=== PATIENT | female | born 1940 | race Caucasian/White ===

== ENCOUNTER 2017-10-17 16:15 | Emergency (ER) | payer MEDICARE, OTHER ==
[2017-10-17] MEDS ORDERED: ONDANSETRON 4 MG/2 ML VIAL IVP STA (16:41)
[2017-10-17] MEDS ORDERED: SODIUM CHLORIDE 0.9% 1,000 ML IV STA (16:41)
--- NOTE | 2017-10-17 16:42 | ED ---
General Adult HPI - General Chief complaint: Nausea/Vomiting/Diarrhea Stated complaint: NVD Time Seen by Provider: 10/17/17 16:34 Source: patient, RN notes reviewed Mode of arrival: wheelchair Limitations: no limitations - History of Present Illness Initial comments: Patient 77-year-old female who presents emergency room today with a chief complaint of increased nausea vomiting that started early this morning. She states she's had 10 episodes of nausea and vomiting. No signs of blood. Patient does admit that she says cough congestion over the last 2 days as well. Patient denies any other complaints. Patient denies any recent fever, chills , shortness of breath, chest pain, back pain, abdominal pain, numbness or tingling, dysuria or hematuria, constipation, headaches or visual changes, or any other complaints. - Related Data Home Medications Medication Instructions Recorded Confirmed Acetaminophen Tab [Tylenol Tab] 650 mg PO Q6HR PRN 10/17/17 10/17/17 Alendronate Sodium [Fosamax] 70 mg PO Q7D 10/17/17 10/17/17 Aspirin [Adult Low Dose Aspirin EC] 81 mg PO DAILY 10/17/17 10/17/17 Biotin 5 mg PO DAILY 10/17/17 10/17/17 Cholecalciferol [Vitamin D3] 1,000 unit PO DAILY 10/17/17 10/17/17 FLUoxetine HCL [PROzac] 10 mg PO DAILY 10/17/17 10/17/17 Fexofenadine HCl 180 mg PO DAILY 10/17/17 10/17/17 Fluticasone Nasal [place] [Flonase 2 spr EA NOSTRIL DAILY 10/17/17 10/17/17 Nasal [place]] Hydroxychloroquine Sulfate 200 mg PO DAILY 10/17/17 10/17/17 [Plaquenil] Ibuprofen [Motrin] 400 mg PO Q8HR PRN 10/17/17 10/17/17 Levothyroxine Sodium [Synthroid] 88 mcg PO DAILY 10/17/17 10/17/17 [place]-3 Fatty Acids/Fish Oil [Fish 1 cap PO DAILY 10/17/17 10/17/17 Oil 1,000 mg Softgel] Phenylephrine HCl [Sudafed PE] 10 mg PO BID 10/17/17 10/17/17 Pravastatin Sodium [Pravachol] 10 mg PO HS 10/17/17 10/17/17 Pyridoxine HCl (Vitamin B6) 100 mg PO DAILY 10/17/17 10/17/17 [Vitamin B-6] predniSONE 2 mg PO DAILY 10/17/17 10/17/17 traZODone HCL 50 - 100 mg PO HS 10/17/17 10/17/17 Previous Rx's Medication Instructions Recorded Ondansetron Odt [Zofran ODT] 4 mg PO Q8HR PRN #20 tab 10/17/17 Allergies Allergy/AdvReac Type Severity Reaction Status Date / Time benzalkonium chloride Allergy Unknown Verified 10/17/17 18:13 buprenorphine Allergy Rash/Hives Verified 10/17/17 18:13 codeine Allergy Rash/Hives Verified 10/17/17 18:13 hydrocodone Allergy Unknown Verified 10/17/17 18:13 hydromorphone Allergy Unknown Verified 10/17/17 18:13 Latex, Natural Rubber Allergy Rash/Hives Verified 10/17/17 18:13 morphine Allergy Rash/Hives Verified 10/17/17 18:13 oxycodone Allergy Unknown Verified 10/17/17 18:13 penicillin V Allergy Rash/Hives Verified 10/17/17 18:13 Sulfa (Sulfonamide Allergy Unknown Verified 10/17/17 18:13 Antibiotics) tetanus and diphtheria Allergy Unknown Verified 10/17/17 18:13 toxoids tramadol Allergy Rash/Hives Verified 10/17/17 18:13 Review of Systems ROS Statement: Those systems with pertinent positive or pertinent negative responses have been documented in the HPI. ROS Other: All systems not noted in ROS Statement are negative. Past Medical History Additional Past Medical History / Comment(s): PMR, History of Any Multi-Drug Resistant Organisms: None Reported Past Surgical History: Back Surgery, Orthopedic Surgery Past Psychological History: No Psychological Hx Reported Smoking Status: Never smoker Past Alcohol Use History: None Reported Past Drug Use History: None Reported General Exam - General Exam Comments Initial Comments: General: The patient is awake and alert, in no distress, and does not appear acutely ill. Eye: Pupils are equal, round and reactive to light, extra-ocular movements are intact. No nystagmus. There is normal conjunctiva bilaterally. No signs of icterus. Ears, nose, mouth and throat: There are moist mucous membranes and no oral lesions. Neck: The neck is supple, there is no tenderness or JVD. Cardiovascular: There is a regular rate and rhythm. No murmur, rub or gallop is appreciated. Respiratory: Lungs are clear to auscultation, respirations are non-labored, breath sounds are equal. No wheezes, stridor, rales, or rhonchi. Gastrointestinal: Soft, non-distended, non-tender abdomen without masses or organomegaly noted. There is no rebound or guarding present. No CVA tenderness. Bowel sounds are unremarkable. Musculoskeletal: Normal ROM, no tenderness. Strength 5/5. Sensation intact. Pulses equal bilaterally 2+. Neurological: A&O x 3. CN II-XII intact, There are no obvious motor or sensory deficits. Coordination appears grossly intact. Speech is normal. Skin: Skin is warm and dry and no rashes or lesions are noted. Psychiatric: Cooperative, appropriate mood & affect, normal judgment. Limitations: no limitations Course Vital Signs 10/17/17 10/17/17 16:26 18:30 Temperature 98.6 F 98.5 F Pulse Rate 102 H 88 Respiratory 20 20 Rate Blood Pressure 116/56 124/64 O2 Sat by Pulse 98 97 Oximetry Medical Decision Making - Medical Decision Making Case discussed in detail with attending physician Dr. Emerson. Patient reexamined at this time shows no signs of distress resting comfortably. Patient is to improvement of nausea after nausea medication with IV bolus. Patient resting of the left side. No abdominal tenderness or pain on exam. Patient feeling much better. Patient's chest x-rays negative. Labs been reviewed. Advised close follow-up family doctor over the next 2 days. Advised return here to emergency room if symptoms increase worsen will be discharged home with nausea medication use for her symptoms. Advised to increase oral fluids. Patient and family members at bedside stating nausea and aren't agreement. - Lab Data Result diagrams: 10/17/17 18:45 10/17/17 18:45 Lab Results 10/17/17 10/17/17 Range/Units 18:45 18:45 WBC 7.4 (3.8-10.6) k/uL RBC 4.36 (3.80-5.40) m/uL Hgb 12.7 (11.4-16.0) gm/dL Hct 39.3 (34.0-46.0) % MCV 90.0 (80.0-100.0) fL MCH 29.0 (25.0-35.0) pg MCHC 32.2 (31.0-37.0) g/dL RDW 13.9 (11.5-15.5) % Plt Count 247 (150-450) k/uL Neutrophils % 80 % Lymphocytes % 9 % Monocytes % 7 % Eosinophils % 1 % Basophils % 1 % Neutrophils # 5.9 (1.3-7.7) k/uL Lymphocytes # 0.7 L (1.0-4.8) k/uL Monocytes # 0.5 (0-1.0) k/uL Eosinophils # 0.1 (0-0.7) k/uL Basophils # 0.1 (0-0.2) k/uL Sodium 139 (137-145) mmol/L Potassium 4.4 (3.5-5.1) mmol/L Chloride 109 H (98-107) mmol/L Carbon Dioxide 22 (22-30) mmol/L Anion Gap 8 mmol/L BUN 18 H (7-17) mg/dL Creatinine 0.89 (0.52-1.04) mg/dL Est GFR (MDRD) Af Amer >60 (>60 ml/min/1.73 sqM) Est GFR (MDRD) Non-Af >60 (>60 ml/min/1.73 sqM) Glucose 91 (74-99) mg/dL Calcium 8.7 (8.4-10.2) mg/dL Total Bilirubin 0.5 (0.2-1.3) mg/dL AST 55 H (14-36) U/L ALT 75 H (9-52) U/L Alkaline Phosphatase 67 (38-126) U/L Total Protein 6.1 L (6.3-8.2) g/dL Albumin 3.3 L (3.5-5.0) g/dL Amylase 82 (30-110) U/L Lipase 74 (23-300) U/L Disposition Clinical Impression: Nausea vomiting and diarrhea, Upper respiratory infection Disposition: HOME SELF-CARE Instructions: Acute Nausea and Vomiting (ED) Additional Instructions: Please use medication as discussed. Please follow-up with family doctor in the next 2 days. Please return to emergency room if the symptoms increase or worsen or for any other concerns. Prescriptions: Ondansetron Odt [Zofran ODT] 4 mg PO Q8HR PRN #20 tab PRN Reason: Nausea Referrals: Nonstaff,Physician [Primary Care Provider] - 1-2 days Time of Disposition: 19:25
--- NOTE | 2017-10-17 18:14 | XR ---
EXAMINATION TYPE: XR chest 2V DATE OF EXAM: 10/17/2017 COMPARISON: NONE HISTORY: Cough TECHNIQUE: Frontal and lateral views of the chest are obtained. FINDINGS: There is chronic parenchymal change without suspicious focal air space opacity, pleural ef fusion, or pneumothorax seen. Slight pectus deformity is seen on lateral view. The cardiac silhouette size is within normal limits. Atherosclerotic change in thoracic aorta is present. The osseous stru ctures are intact. IMPRESSION: Chronic changes without suspicious acute pulmonary process.
--- NOTE | 2017-10-17 18:16 | XR ---
EXAMINATION TYPE: XR KUB DATE OF EXAM: 10/17/2017 6:01 PM CLINICAL HISTORY: Abdominal pain. Nausea vomiting and diarrhea since Sunday. TECHNIQUE: Two Upright KUB images of the abdomen are obtained. COMPARISON: None. FINDINGS: Gas is seen in nondistended stomach bubble. Scattered gas is seen in non-distended small ashly wel loops. A few small bowel loops right and central mid to lower are identified. Gas is seen in non- distended colon. A few scattered air-fluid levels are present in the right abdomen, nonspecific findi ng. There is moderate degenerative change in both hips, right greater than left. No pneumoperitoneum is identified. Lung bases are clear. No suspicious calcifications are seen. IMPRESSION: Overall nonspecific but favor nonobstructive bowel gas pattern.
[2017-10-17] MEDS ORDERED: ACETAMINOPHEN IV (For NPO) 1,000 MG in EMPTY BAG 1 BAG IVPB STA (18:35)
[2017-10-17 19:03] LABS: Basophils # (A) 0.1 k/uL (0-0.2); Basophils % (A) 1 %; CH 29.4; CHCM 32.8; Eosinophils # (A) 0.1 k/uL (0-0.7); Eosinophils % (A) 1 %; HCT 39.3 % (34.0-46.0); HGB 12.7 gm/dL (11.4-16.0); Luc # (Auto) 0.16; Luc % (Auto) 2; Lymphocytes # (A) 0.7 k/uL (1.0-4.8); Lymphocytes % (A) 9 %; MCHC 32.2 g/dL (31.0-37.0); Monocytes # (A) 0.5 k/uL (0-1.0); Monocytes % (A) 7 %; Neutrophils # (A) 5.9 k/uL (1.3-7.7); Neutrophils % (A) 80 %; RBC 4.36 m/uL (3.80-5.40); RDW 13.9 % (11.5-15.5); WBC 7.4 k/uL (3.8-10.6); WBC (Perox) 7.35
[2017-10-17 19:08] LABS: Amylase 82 U/L (30-110); Anion Gap 8 mmol/L; Calcium 8.7 mg/dL (8.4-10.2); Carbon Dioxide 22 mmol/L (22-30); Chloride 109 mmol/L (98-107); Glucose 91 mg/dL (74-99); Non-African American GFR(MDRD) >60 (>60 ml/min/1.73 sqM); Sodium 139 mmol/L (137-145); Total Bilirubin 0.5 mg/dL (0.2-1.3); Total Protein 6.1 g/dL (6.3-8.2)
[2017-10-17 19:09] LABS: ALT 75 U/L (9-52); AST 55 U/L (14-36); Alkaline Phosphatase 67 U/L (38-126); Blood Urea Nitrogen 18 mg/dL (7-17); Potassium 4.4 mmol/L (3.5-5.1)
[2017-10-17 19:39] VITALS: BP 128/57; PULSE 89; RESP 16; TEMP 100.9
== END 2017-10-17 19:55 | disposition home or self-care (01) ==
LOC: EC 16:15
DX: R11.2 Nausea with vomiting, unspecified (principal); R19.7 Diarrhea, unspecified; J06.9 Acute upper respiratory infection, unspecified; Z79.82 Long term (current) use of aspirin; Z79.51 Long term (current) use of inhaled steroids; Z79.52 Long term (current) use of systemic steroids; Z79.899 Other long term (current) drug therapy; Z88.2 Allergy status to sulfonamides; Z88.0 Allergy status to penicillin; Z88.7 Allergy status to serum and vaccine; Z88.5 Allergy status to narcotic agent; Z91.040 Latex allergy status; Z88.8 Allergy status to other drugs, medicaments and biological substances; Z88.6 Allergy status to analgesic agent
CPT/HCPCS: 36415; 80053; 82150; 83690; 85025; 87502; 71020; 74000; 99284; 96374; 96361; J2405; J0131

== ENCOUNTER → 2018-02-04 | Outpatient (CLI) | payer MEDICARE, OTHER | END | disposition home or self-care (01) | LOC: LABWHC1 14:40 | PROVIDERS: ATTEND Internal Medicine | DX: M35.3 Polymyalgia rheumatica (principal) | CPT/HCPCS: 36415; 85652; 86140 ==

== ENCOUNTER 2018-03-16 10:17 | Emergency (ER) | payer MEDICARE, OTHER ==
[2018-03-16] MEDS ORDERED: ACETAMINOPHEN TAB 500 MG TAB PO STA (10:51)
[2018-03-16] MEDS ORDERED: DEXAMETHASONE 4 MG TAB PO STA (10:51)
[2018-03-16] MEDS ORDERED: DIAZEPAM 5 MG/ML 2 ML INJ IM ONE (10:51)
[2018-03-16] MEDS ORDERED: SODIUM CHLORIDE 0.9% 1,000 ML IV STA (10:53)
--- NOTE | 2018-03-16 11:09 | ED ---
General Adult HPI - General Chief complaint: Neck Pain/Injury Stated complaint: Shoulder/neck pain Time Seen by Provider: 03/16/18 10:29 Source: patient Mode of arrival: ambulatory Limitations: no limitations - History of Present Illness Initial comments: 78 years old female Now with a history of polymyalgia rheumatica steroid dose is being tapered down by her behavioral pediatrician at [facility] she is seeing Dr. Samayoa. Now she is complaining about pain on the both sides of the neck pain in the right shoulder, pain over the right scapula and pain with deep breaths she said she did feel some discomfort in the anterior chest yesterday. Denies any trauma or overexertion over the last couple days 3 days ago she got nervous and she did take 20 mg of prednisone by mouth and then she also took some Motrin, she has a history of kidney disease she is not supposed to be taking Motrin by mouth her behavioral pediatrician has prescribed Motrin patches which she stated her to expense if she is unable to afford. No complaining about a pleuritic chest pain in her behavioral pediatrician was concerned about her heart. She called her review of system is otherwise unremarkable - Related Data Home Medications Medication Instructions Recorded Confirmed Acetaminophen Tab [Tylenol Tab] 650 mg PO Q6HR PRN 10/17/17 03/16/18 Alendronate Sodium [Fosamax] 70 mg PO Q7D 10/17/17 03/16/18 Aspirin [Adult Low Dose Aspirin EC] 81 mg PO DAILY 10/17/17 03/16/18 Biotin 5 mg PO DAILY 10/17/17 03/16/18 Cholecalciferol [Vitamin D3] 1,000 unit PO DAILY 10/17/17 03/16/18 FLUoxetine HCL [PROzac] 10 mg PO DAILY 10/17/17 03/16/18 Fexofenadine HCl 180 mg PO DAILY 10/17/17 03/16/18 Fluticasone Nasal [place] [Flonase 2 spr EA NOSTRIL DAILY 10/17/17 03/16/18 Nasal [place]] Hydroxychloroquine Sulfate 200 mg PO DAILY 10/17/17 03/16/18 [Plaquenil] Ibuprofen [Motrin] 400 mg PO Q8HR PRN 10/17/17 03/16/18 Levothyroxine Sodium [Synthroid] 88 mcg PO DAILY 10/17/17 03/16/18 [place]-3 Fatty Acids/Fish Oil [Fish 1 cap PO DAILY 10/17/17 03/16/18 Oil 1,000 mg Softgel] Phenylephrine HCl [Sudafed PE] 10 mg PO BID 10/17/17 03/16/18 Pravastatin Sodium [Pravachol] 10 mg PO HS 10/17/17 03/16/18 Pyridoxine HCl (Vitamin B6) 100 mg PO DAILY 10/17/17 03/16/18 [Vitamin B-6] predniSONE 2 mg PO DAILY 10/17/17 03/16/18 traZODone HCL 50 - 100 mg PO HS 10/17/17 03/16/18 Previous Rx's Medication Instructions Recorded Ondansetron Odt [Zofran ODT] 4 mg PO Q8HR PRN #20 tab 10/17/17 Cyclobenzaprine [Flexeril] 10 mg PO HS #5 tab 03/16/18 predniSONE 20 mg PO DIRECTED #5 tab 03/16/18 Allergies Allergy/AdvReac Type Severity Reaction Status Date / Time benzalkonium chloride Allergy Unknown Verified 03/16/18 10:27 buprenorphine Allergy Rash/Hives Verified 03/16/18 10:27 codeine Allergy Rash/Hives Verified 03/16/18 10:27 hydrocodone Allergy Unknown Verified 03/16/18 10:27 hydromorphone Allergy Unknown Verified 03/16/18 10:27 Latex, Natural Rubber Allergy Rash/Hives Verified 03/16/18 10:27 morphine Allergy Rash/Hives Verified 03/16/18 10:27 oxycodone Allergy Unknown Verified 03/16/18 10:27 penicillin V Allergy Rash/Hives Verified 03/16/18 10:27 Sulfa (Sulfonamide Allergy Unknown Verified 03/16/18 10:27 Antibiotics) tetanus and diphtheria Allergy Unknown Verified 03/16/18 10:27 toxoids tramadol Allergy Rash/Hives Verified 03/16/18 10:27 Review of Systems ROS Statement: Those systems with pertinent positive or pertinent negative responses have been documented in the HPI. ROS Other: All systems not noted in ROS Statement are negative. Past Medical History Past Medical History: Hyperlipidemia Additional Past Medical History / Comment(s): PMR, History of Any Multi-Drug Resistant Organisms: None Reported Past Surgical History: Back Surgery, Orthopedic Surgery Past Psychological History: No Psychological Hx Reported Smoking Status: Never smoker Past Alcohol Use History: None Reported Past Drug Use History: None Reported General Exam - General Exam Comments Initial Comments: General: The patient is awake and alert, in no distress, and does not appear acutely ill. Skin: Skin is warm and dry and no rashes or lesions are noted. Some erythema over the right scapula noticed about 6/7 ABOUT 2-3 cm in size, they don't look like typical shingles at this point Eye: Pupils are equal, round and reactive to light, extra-ocular movements are intact; there is normal conjunctiva bilaterally. Ears, nose, mouth and throat: There are moist mucous membranes and no oral lesions. Neck: The neck is supple, no signs of meningitis. Noticed some tenderness over the cervical spine Cardiovascular: There is a regular rate and rhythm. No murmur, rub or gallop is appreciated. Respiratory: To auscultation bilateral, no wheezing no rhonchi no distress respiratory mendez noticed Gastrointestinal: Soft, non-distended, non-tender abdomen without masses or organomegaly noted. There is no rebound or guarding present. Bowel sounds are unremarkable. Back: There is no tenderness to palpation in the midline. There is no obvious deformity. Musculoskeletal: Normal ROM, no tenderness, There is no pedal edema. There is no calf tenderness or swelling. No cords were appreciated. Neurological: CN II-XII intact, Cranial nerves III through XII are intact. There are no obvious motor or sensory deficits. Coordination appears grossly intact. Speech is normal. Psychiatric: Cooperative, appropriate mood & affect, normal judgment. Limitations: no limitations Course Vital Signs 03/16/18 10:21 Temperature 97.1 F L Pulse Rate 77 Respiratory 18 Rate Blood Pressure 178/72 O2 Sat by Pulse 100 Oximetry EKG Findings - EKG Comments: EKG Findings:: EKG is normal sinus with ventricular rate is 66 HI interval is 172 QRS duration is 132 QT/QTc is 458/480 review of this EKG reveals right bundle branch block no ST elevation noticed no ST depression noticed Medical Decision Making - Lab Data Result diagrams: 03/16/18 11:08 03/16/18 11:08 Lab Results 03/16/18 03/16/18 03/16/18 Range/Units 11:08 11:08 11:08 WBC 10.3 (3.8-10.6) k/uL RBC 4.37 (3.80-5.40) m/uL Hgb 12.4 (11.4-16.0) gm/dL Hct 38.1 (34.0-46.0) % MCV 87.2 (80.0-100.0) fL MCH 28.4 (25.0-35.0) pg MCHC 32.6 (31.0-37.0) g/dL RDW 13.7 (11.5-15.5) % Plt Count 306 (150-450) k/uL Neutrophils % 71 % Lymphocytes % 17 % Monocytes % 8 % Eosinophils % 2 % Basophils % 0 % Neutrophils # 7.2 (1.3-7.7) k/uL Lymphocytes # 1.7 (1.0-4.8) k/uL Monocytes # 0.8 (0-1.0) k/uL Eosinophils # 0.2 (0-0.7) k/uL Basophils # 0.0 (0-0.2) k/uL PT (9.0-12.0) sec INR (<1.2) APTT (22.0-30.0) sec D-Dimer (<0.60) mg/L FEU Sodium 140 (137-145) mmol/L Potassium 4.7 (3.5-5.1) mmol/L Chloride 104 (98-107) mmol/L Carbon Dioxide 23 (22-30) mmol/L Anion Gap 13 mmol/L BUN 24 H (7-17) mg/dL Creatinine 0.89 (0.52-1.04) mg/dL Est GFR (CKD-EPI)AfAm 71 (>60 ml/min/1.73 sqM) Est GFR (CKD-EPI)NonAf 62 (>60 ml/min/1.73 sqM) Glucose 102 H (74-99) mg/dL Calcium 9.8 (8.4-10.2) mg/dL Magnesium 1.9 (1.6-2.3) mg/dL Total Bilirubin 0.3 (0.2-1.3) mg/dL AST 20 (14-36) U/L ALT 26 (9-52) U/L Alkaline Phosphatase 81 (38-126) U/L Total Creatine Kinase 21 L (30-135) U/L CK-MB (CK-2) 0.4 (0.0-2.4) ng/mL CK-MB (CK-2) Rel Index 1.9 Troponin I <0.012 (0.000-0.034) ng/mL Total Protein 6.2 L (6.3-8.2) g/dL Albumin 3.8 (3.5-5.0) g/dL 03/16/18 Range/Units 11:08 WBC (3.8-10.6) k/uL RBC (3.80-5.40) m/uL Hgb (11.4-16.0) gm/dL Hct (34.0-46.0) % MCV (80.0-100.0) fL MCH (25.0-35.0) pg MCHC (31.0-37.0) g/dL RDW (11.5-15.5) % Plt Count (150-450) k/uL Neutrophils % % Lymphocytes % % Monocytes % % Eosinophils % % Basophils % % Neutrophils # (1.3-7.7) k/uL Lymphocytes # (1.0-4.8) k/uL Monocytes # (0-1.0) k/uL Eosinophils # (0-0.7) k/uL Basophils # (0-0.2) k/uL PT 10.1 (9.0-12.0) sec INR 1.0 (<1.2) APTT 22.3 (22.0-30.0) sec D-Dimer 0.65 H (<0.60) mg/L FEU Sodium (137-145) mmol/L Potassium (3.5-5.1) mmol/L Chloride (98-107) mmol/L Carbon Dioxide (22-30) mmol/L Anion Gap mmol/L BUN (7-17) mg/dL Creatinine (0.52-1.04) mg/dL Est GFR (CKD-EPI)AfAm (>60 ml/min/1.73 sqM) Est GFR (CKD-EPI)NonAf (>60 ml/min/1.73 sqM) Glucose (74-99) mg/dL Calcium (8.4-10.2) mg/dL Magnesium (1.6-2.3) mg/dL Total Bilirubin (0.2-1.3) mg/dL AST (14-36) U/L ALT (9-52) U/L Alkaline Phosphatase (38-126) U/L Total Creatine Kinase (30-135) U/L CK-MB (CK-2) (0.0-2.4) ng/mL CK-MB (CK-2) Rel Index Troponin I (0.000-0.034) ng/mL Total Protein (6.3-8.2) g/dL Albumin (3.5-5.0) g/dL Critical Care Time Total Critical Care Time: 30 Critical Care Time: & Now with the chest pain and denies multiple risk factors she 78 years old complains about pleuritic chest pain chest x-ray ruled out any pneumothorax EKG was unremarkable troponin rule out any myocardial infarction but unfortunately the d-dimer was elevated and then we did the cervical spine x-ray though she had no trauma and it showed significant degenerative disease and some formula narrowing but there was no acute fracture there, pulmonary embolism the studies was done to rule out PE since she has a pleuritic chest pain and d-dimer is elevated PE study is unremarkable, she be gone home on some steroids and she does have appointment with her behavioral pediatrician Dr. Samayoa Disposition Clinical Impression: Pleuritic chest pain, History of polymyalgia rheumatica, Neck pain Disposition: HOME SELF-CARE Condition: Good Instructions: Cervical Strain (ED) Prescriptions: Cyclobenzaprine [Flexeril] 10 mg PO HS #5 tab predniSONE 20 mg PO DIRECTED #5 tab Is patient prescribed a controlled substance at d/c from ED?: No If prescribed controlled substance>3 days was MAPS reviewed?: No When asked, does pt state using other controlled substances?: No Referrals: Nonstaff,Physician [Primary Care Provider] - 1-2 days
[2018-03-16 11:16] LABS: Basophils % (A) 0 %; Eosinophils # (A) 0.2 k/uL (0-0.7); Eosinophils % (A) 2 %; HCT 38.1 % (34.0-46.0); HGB 12.4 gm/dL (11.4-16.0); Lymphocytes # (A) 1.7 k/uL (1.0-4.8); Lymphocytes % (A) 17 %; MCH 28.4 pg (25.0-35.0); MCHC 32.6 g/dL (31.0-37.0); MCV 87.2 fL (80.0-100.0); Monocytes # (A) 0.8 k/uL (0-1.0); Monocytes % (A) 8 %; Neutrophils # (A) 7.2 k/uL (1.3-7.7); Neutrophils % (A) 71 %; Platelet Count 306 k/uL (150-450); RBC 4.37 m/uL (3.80-5.40); RDW 13.7 % (11.5-15.5); WBC 10.3 k/uL (3.8-10.6)
[2018-03-16 11:25] LABS: Albumin 3.8 g/dL (3.5-5.0); Calcium 9.8 mg/dL (8.4-10.2); Magnesium 1.9 mg/dL (1.6-2.3); Potassium 4.7 mmol/L (3.5-5.1); Total Bilirubin 0.3 mg/dL (0.2-1.3); Total Protein 6.2 g/dL (6.3-8.2)
[2018-03-16 11:29] LABS: Partial Thromboplastin Time 22.3 sec (22.0-30.0); Prothrombin Time 10.1 sec (9.0-12.0)
--- NOTE | 2018-03-16 11:33 | XR ---
EXAMINATION TYPE: XR shoulder complete RT , 3 VIEWS DATE OF EXAM ORDERED: 03/16/2018 HISTORY: Pain. COMPARISON: None. FINDINGS: There are hypertrophic changes in the right AC joint. No fracture, dislocation or other ac [place] osseous lesion is seen. IMPRESSION: 1. NO ACUTE OSSEOUS LESION. 2. DEGENERATIVE CHANGE.
--- NOTE | 2018-03-16 11:35 | XR ---
EXAMINATION TYPE: XR cervical spine comp , 5 VIEWS DATE OF EXAM ORDERED: 03/16/2018 HISTORY: Pain. COMPARISON: None. FINDINGS: There is a mild reversal of the normal cervical lordosis. Vertebral body height and alignm ent are maintained. Atlantoaxial relationships are normal. There is degenerative disc disease and hyp ertrophic spondylosis at all levels with relative sparing of the C2-3 level. There is diffuse, mild u ncovertebral joint disease. There is intervertebral foraminal narrowing on the right at C3-4 and C4-5 and to a lesser extent on the left at C3-4 and C4-5. IMPRESSION: 1. DEGENERATIVE CHANGE. 2. MULTILEVEL INTERVERTEBRAL FORAMINAL NARROWING.
--- NOTE | 2018-03-16 11:36 | XR ---
EXAMINATION TYPE: XR chest 2V DATE OF EXAM: 03/16/2018 HISTORY: Chest Pain. REFERENCE: Previous study dated 10/17/2017. FINDINGS: The lungs are clear. Pleural spaces are clear. The heart is not enlarged. IMPRESSION: NO ACTIVE INTRATHORACIC DISEASE.
[2018-03-16 11:39] LABS: Creatine Kinase 21 U/L (30-135)
[2018-03-16 11:50] LABS: D-Dimer 0.65 mg/L FEU (<0.60)
[2018-03-16 11:52] LABS: Creatine Kinase MB 0.4 ng/mL (0.0-2.4); Troponin I <0.012 ng/mL (0.000-0.034)
[2018-03-16] MEDS ORDERED: RX INFO: IV CONTRAST WAS GIVEN 1 EACH MISC MISCELLANE PRN (11:53)
--- NOTE | 2018-03-16 12:40 | CT ---
EXAMINATION TYPE: CT chest angio for PE DATE OF EXAM: 03/16/2018 COMPARISON: NONE HISTORY: Pain Rt shoulder blade CT DLP: 257.6 mGycm Automated exposure control for dose reduction was used. CONTRAST: CT Chest for pulmonary embolism performed with with IV Contrast, patient injected with 63 mL of Isovu e 370. FINDINGS: There is some dependent atelectasis in the dependent portions of the lungs. There is no significant axillary or internal mammary adenopathy. There is some shotty adenopathy in t he aortopulmonary window. There is no evidence of pulmonary embolus. The aorta is normal in caliber without evidence of dissect ion. The heart is mildly enlarged. There is no pleural or pericardial fluid. Visualized portions of the upper abdomen are unremarkable. There is mild hypertrophic spondylosis within the spine. IMPRESSION: 1. This examination is negative for pulmonary embolus. 2. Mild cardiomegaly.
[2018-03-16 12:56] VITALS: BP 148/69; PULSE 67; RESP 16; TEMP 98.6
== END 2018-03-16 13:00 | disposition home or self-care (01) ==
LOC: EC 10:17
DX: M54.2 Cervicalgia (principal); R07.81 Pleurodynia; M35.3 Polymyalgia rheumatica; E78.5 Hyperlipidemia, unspecified; Z79.82 Long term (current) use of aspirin; Z79.51 Long term (current) use of inhaled steroids; Z79.52 Long term (current) use of systemic steroids; Z79.899 Other long term (current) drug therapy; Z88.8 Allergy status to other drugs, medicaments and biological substances; Z88.5 Allergy status to narcotic agent; Z91.040 Latex allergy status; Z88.0 Allergy status to penicillin; Z88.2 Allergy status to sulfonamides; Z88.7 Allergy status to serum and vaccine; Z88.6 Allergy status to analgesic agent
CPT/HCPCS: 36415; 93005; 85379; 80053; 82550; 82553; 83735; 84484; 85025; 85610; 85730; 72050; 73030; 71046; 71275; 99285; 96360; 96361; 96372; J8540; J3360; Q9967

== ENCOUNTER → 2018-06-08 | Outpatient (CLI) | payer MEDICARE, OTHER ==
[2018-06-08 11:11] LABS: Appearance,Urine Clear (Clear); Basophils # (A) 0.1 k/uL (0-0.2); Basophils % (A) 1 %; Bilirubin,Urine Negative (Negative); Blood,Urine Negative (Negative); Color,Urine Yellow; Eosinophils # (A) 0.1 k/uL (0-0.7); Eosinophils % (A) 2 %; Glucose,Urine (UA) Negative (Negative); HCT 39.7 % (34.0-46.0); HGB 12.6 gm/dL (11.4-16.0); Ketones,Urine Negative (Negative); Leukocyte Esterase,Urine Negative (Negative); Lymphocytes # (A) 0.9 k/uL (1.0-4.8); Lymphocytes % (A) 12 %; MCHC 31.8 g/dL (31.0-37.0); MCV 88.1 fL (80.0-100.0); Mean Platelet Volume 6.9; Monocytes # (A) 0.5 k/uL (0-1.0); Monocytes % (A) 7 %; Neutrophils # (A) 5.7 k/uL (1.3-7.7); Neutrophils % (A) 75 %; Nitrite,Urine Negative (Negative); PH, Urine 5.5 (5.0-8.0); Platelet Count 305 k/uL (150-450); Protein,Urine Negative (Negative); RBC 4.51 m/uL (3.80-5.40); RDW 14.9 % (11.5-15.5); Specific Gravity,Urine 1.008 (1.001-1.035); Urobilinogen,Urine <2.0 mg/dL (<2.0); WBC 7.5 k/uL (3.8-10.6)
[2018-06-08 11:23] LABS: Albumin 3.9 g/dL (3.5-5.0); C Reactive Protein 11.9 mg/L (<10.0); Calcium 9.5 mg/dL (8.4-10.2); Potassium 4.5 mmol/L (3.5-5.1); Total Bilirubin 0.3 mg/dL (0.2-1.3); Total Protein 6.3 g/dL (6.3-8.2)
[2018-06-08 11:28] LABS: Creatinine,Urine Random 71.6 mg/dL
[2018-06-08 13:08] LABS: Erythrocyte Sedimentation Rate 21 mm/hr (0-20)
[2018-06-08 16:49] LABS: Protein, Total 6.3 g/dL (6.2-8.2)
[2018-06-10 13:02] LABS: Albumin 3.74 g/dL (3.80-4.90); Gamma Globulin 0.66 g/dL (0.70-1.50)
== END | disposition home or self-care (01) ==
LOC: LABWHC1 10:38
PROVIDERS: ATTEND Internal Medicine
DX: L29.9 Pruritus, unspecified (principal); M35.3 Polymyalgia rheumatica
CPT/HCPCS: 36415; 80053; 81003; 82570; 83036; 84156; 84165; 84166; 84443; 85025; 85652; 86140